=== PATIENT | female | born 1990 | race American Indian/Alaskan Native ===

== ENCOUNTER 2018-04-27 11:56 | Emergency (ER) | payer OTHER ==
[2018-04-27 13:03] VITALS: BP 114/74
[2018-04-27] MEDS ORDERED: TORADOL IM ONE (15:38)
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
--- NOTE | 2018-04-27 16:41 | XRay Report ---
FINAL REPORT EXAM: XR HUMERUS 2+V RT HISTORY: Right shoulder/arm pain TECHNIQUE: Two views of the right humerus. PRIORS: None currently available. FINDINGS: There is no acute fracture. There is no evidence for healing fracture. There is no acute dislocation. There is no cortical destruction to suggest osteomyelitis. There are no suspicious osseous lesions. There are no radiopaque foreign objects. IMPRESSION: No acute osseous findings.
--- NOTE | 2018-04-27 16:41 | XRay Report ---
FINAL REPORT EXAM: XR SPINE CERVICAL 2-3V HISTORY: neck pain TECHNIQUE: Six views of cervical spine. PRIORS: None currently available. FINDINGS: Mild grade 1 anterior subluxation at C5-C6. Disc spaces are uniform. Nonspecific straightening of the normal lordotic alignment. Prevertebral soft tissues are unremarkable. C1-C2 articulation is not clearly evident. No scoliosis. No suspicious osseous lesions. No vertebral anomalies. IMPRESSION: C1-C2 articulation not clearly evident. Nonspecific straightening of the normal lordotic alignment. Suspect disc disease at C5-C6.
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
== END 2018-04-27 17:54 | disposition home or self-care (01) ==
LOC: ED 11:56
DX: S13.4XXA Sprain of ligaments of cervical spine, initial encounter (principal); S46.911A Strain of unspecified muscle, fascia and tendon at shoulder and upper arm level, right arm, initial encounter; J45.909 Unspecified asthma, uncomplicated; V89.2XXA Person injured in unspecified motor-vehicle accident, traffic, initial encounter; Y93.89 Activity, other specified; Y92.488 Other paved roadways as the place of occurrence of the external cause; Y99.8 Other external cause status
CPT/HCPCS: 72040; 99283; J1885